=== PATIENT | male | born 1970 | race African-American/Black ===

== ENCOUNTER 2019-03-22 08:36 | Emergency (ER) | payer BC, OTHER ==
[2019-03-22 08:54] VITALS: BP 145/90
[2019-03-22] MEDS ORDERED: LORazepam 0.5 MG TAB PO ONE (09:00)
[2019-03-22 09:30] LABS: Eosinophils # (auto) 0 uL; Mean Corpuscular Volume 98.3 fL (80.0-100.0); Monocytes # (auto) 0.6 uL; Nucleated Red Blood Cells % 0.1 %
[2019-03-22 09:31] LABS: Basophils # (auto) 0.1 uL; Basophils % (auto) 1.1 % (0.0-2.0); Eosinophils % (auto) 0.6 % (0.0-7.0); Hematocrit 45.8 % (41.0-53.0); Hemoglobin 15.9 g/dL (13.5-17.5); Lymphocytes % (auto) 19.2 % (10.0-50.0); Mean Corpuscular Hemoglobin 34.2 pg (28.0-32.0); Mean Corpuscular Hgb Conc. 34.8 g/dL (32.0-36.0); Monocytes % (auto) 11.5 % (0.0-12.0); Neutrophils # (auto) 3.5 uL; Neutrophils % (auto) 67.6 % (37.0-80.0); Platelet Count (auto) 158 10^3/uL (140-450); Red Blood Cells 4.66 10^6/uL (4.5-5.90); Red Cell Distribution Width 13.3 % (11.8-14.3); White Blood Cell 5.1 10^3/uL (4.4-10.8)
[2019-03-22 09:49] LABS: Albumin 4.2 g/dL (3.4-5.0); Calcium 9.5 mg/dL (8.5-10.1)
[2019-03-22 09:52] LABS: BUN/Creatinine Ratio 8.3; Bilirubin, Total 0.7 mg/dL (0.2-1.0); Total Protein 7.8 g/dL (6.4-8.2)
== END 2019-03-22 10:44 | disposition home or self-care (01) ==
LOC: ER 08:39
DX: R14.0 Abdominal distension (gaseous) (principal); R19.7 Diarrhea, unspecified; R11.2 Nausea with vomiting, unspecified; I10 Essential (primary) hypertension
CPT/HCPCS: 36415; 74176; 80053; 82150; 83690; 85025